=== PATIENT | male | born 1955 | race Caucasian/White ===

== ENCOUNTER 2021-10-09 20:32 | Emergency (ER) | payer OTHER, SELFPAY ==
--- NOTE | ~2021-10-09 | XR_ITS ---
EXAMINATION: XR FINGER, LEFT CLINICAL INFORMATION: Distal phalanx puncture. COMPARISON: None TECHNIQUE: Three views of the left long finger. XR/XR finger LT min 2V FINDINGS/IMPRESSION: Diffuse soft tissue swelling. No unexpected foreign bodies. No acute fractures or malalignment.
[2021-10-09 20:42] VITALS: BP 148/88; PULSE 90; RESP 20; TEMP 37.3; O2SAT 95; BMI 30.7
--- NOTE | 2021-10-09 21:08 | ED_ITS ---
HPI - Wound/Laceration General Chief Complaint: Wound/Laceration Stated Complaint: finger lac Source: patient Mode of arrival: ambulatory Limitations: no limitations History of Present Illness HPI narrative: 65-year-old male presents with drill injury laceration to the middle finger of his left hand. Onset (ago): hour(s) (Within the hour of arrival) Extremity Location: left: hand (3rd finger tip) Place: home Patient tetanus UTD: No Context: accidental Associated symptoms: pain Related Data Previous Rx's Medication Instructions Recorded amoxicillin 875 mg-potassium 1 tab PO Q12H 10 Days #20 tab 10/09/21 clavulanate 125 mg tablet Allergies Allergy/AdvReac Type Severity Reaction Status Date / Time morphine Allergy Unknown Unknown Uncoded 10/09/21 20:45 Review of Systems Review of Systems: Constitutional: No Fever, No Chills ENT/Mouth: No Ear Pain, No Hoarseness, No sore throat Eyes: No Eye Pain, No Swelling, No Redness, No Foreign Body Cardiovascular: No Chest Pain, No SOB Respiratory: No Cough, No Dyspnea Gastrointestinal: No Nausea, No Vomiting, No Diarrhea, No abdominal Pain Genitourinary: No Dysuria, No Hematuria Musculoskeletal: positive left 3rd finger pain, No Myalgias, No Joint Swelling Skin: Positive left 3rd finger laceration, No rash Neuro: No Weakness, No Numbness, No Paresthesias, No Loss of Consciousness, No Dizziness, No Headache Psych: No Anxiety/Panic, No Depression Heme/Lymph: no easy bruising, no Lymphadenopathy Endocrine: No Polyuria, No Polydipsia Yes all other systems are reviewed and are negative [facility] Past Medical History Attestation statement: The following information was validated with the patient. Source: old records reviewed Medical History Asthma HTN (hypertension) Seizure disorder Social History Social History Advance Directives: No Advance Directives Information Provided: No Physical Exam Vital Signs: Vital Signs: Last Vital Signs Temp 99.1 F 10/09/21 20:42 Pulse 90 10/09/21 20:42 Resp 20 10/09/21 20:42 BP 148/88 H 10/09/21 20:42 Pulse Ox 95 10/09/21 20:42 BMI result Body Mass Index 30.7 Appearance: Alert. Oriented X3. No acute distress. Eyes: Pupils equal, round and reactive to light. ENT: Pharynx normal. Neck: Normal inspection. Neck supple. CVS: Normal heart rate and rhythm. Pulses normal. Respiratory: No respiratory distress. Breath sounds normal. Abdomen: Soft and nontender. Skin: 3 cm laceration to the tip of his 3rd left finger. otherwise Skin warm and dry. Normal skin color. Normal skin turgor. Extremities: Full range of motion to all digits. Strength 5/5. No indication of tendon injury. Neuro: No motor deficit. No sensory deficit. Cranial nerves 2-12 intact. Course Course Course Narrative: 65-year-old male presents with laceration to the left 3rd middle finger tip. He was Using a drill and it slipped, catching his left finger. Tdap is unknown. At this time will order x-rays, antibiotics, Tdap vaccine. Prepped and draped in sterile fashion, patient tolerated procedure well. Please refer to procedure note for full details. 22:43 patient continues with brisk capillary refill and full range of motion. Patient verbalized understanding of and agrees to plan of care discharge home. Understands signs and symptoms indicating need for emergent intervention. MDM - Wound/Laceration Differential Diagnosis Differential diagnosis: Likely laceration Medical Records Attestation: I reviewed the patient's medical records. Imaging Data Finger x-ray: Attestation: I personally reviewed and interpreted this imaging study as follows: Radiologist's impression: EXAMINATION: XR FINGER, LEFT CLINICAL INFORMATION: Distal phalanx puncture.? COMPARISON: None? TECHNIQUE: Three views of the left long finger. XR/XR finger LT min 2V FINDINGS/IMPRESSION: Diffuse soft tissue swelling. No unexpected foreign bodies. No acute fractures or malalignment.? Procedures Laceration Laceration 1: Site: hand Side (If applicable): left Size (cm): 3 Description: irregular Depth: simple, single layer Local Anesthetic: lidocaine 2% Amount of anesthesia used (mL): 4 Pre-repair: wound explored, irrigated extensively and deep structures intact Skin layer closed with: nylon Size (cm): 4-0 Number of sutures: 7 Technique: simple, interrupted Discharge Plan Discharge Clinical Impression: Laceration Patient Disposition: Home, Self-Care Instructions: Care For Your Stitches (ED), Finger Laceration (ED) Additional Instructions: You were evaluated for laceration to the left finger tip. X-rays are negative for acute findings requiring emergent intervention Please return in 10 days to have sutures removed. Please take Augmentin twice a day for the next 10 days. If you notice any signs or symptoms of infection please return immediately Thank you for choosing this emergency department for evaluation. Please follow-up with primary care physician as needed. Return to the emergency department for any new, concerning, or worsening symptoms. Prescriptions: New amoxicillin-pot clavulanate 875-125 mg tablet 1 tab PO Q12H 10 Days Qty: 20 0RF Interventions: ED Discharge Assessment Last Done: 10/09/21 22:54 Discharge Date/Time: 10/09/21 22:56
[2021-10-09] MEDS: Diphth,Pertus(ACell),Tet Adult 0.5 ML SYRINGE IM (21:18)
[2021-10-09] MEDS: Lidocaine HCl 2 % MPF 5 ML VIAL SUBCUT (21:19)
[2021-10-09] MEDS: Amoxicillin/Potassium Clav 875 MG TABLET PO (21:59)
== END 2021-10-09 22:56 | disposition home or self-care (01) ==
PROVIDERS: Emergency Provider Emergency Medicine Emergency Medical Services
DX: S61.412A Laceration without foreign body of left hand, initial encounter (principal); M79.642 Pain in left hand; W29.8XXA Contact with other powered hand tools and household machinery, initial encounter; Y93.9 Activity, unspecified; Y92.009 Unspecified place in unspecified non-institutional (private) residence as the place of occurrence of the external cause; Y99.9 Unspecified external cause status; Z79.899 Other long term (current) drug therapy
CPT/HCPCS: 12002; 73140; 90471; 90715; 99283